=== PATIENT | male | born 2005 | race Two or more races ===

== ENCOUNTER 2024-11-19 19:02 | Observation (INO) | payer OTHER ==
[2024-11-19] MEDS ORDERED: HYDROmorphone 0.5 MG/0.5 ML SYRINGE ONE (20:27)
[2024-11-19] MEDS ORDERED: Ondansetron PF 4 MG/2 ML Vial ONE (20:27)
[2024-11-19] MEDS ORDERED: Ketorolac Tromethamine 30 MG (1 mL) VIAL ONE (20:38)
[2024-11-19] MEDS ORDERED: Lidocaine 1% PF 5 ML VIAL ONE (20:39)
[2024-11-19] MEDS ORDERED: Lidocaine 1% (PF) 30 ML VIAL ONE (20:57)
[2024-11-19] MEDS ORDERED: CEFAZOLIN 2 GM VIAL ONE (21:49)
[2024-11-19] MEDS ORDERED: Sodium Chloride 0.9% 100 ML ONE (21:50)
[2024-11-19] MEDS ORDERED: Boostrix 0.5 ML (Tdap) VIAL (>/=7 yrs of age) ONE (21:50)
[2024-11-19 22:01] LABS: #Basophils 0.05 10x3/uL (0.0-0.2); #Eosinophils Less than 0.03 10x3/uL (0.0-0.7); %Basophils 0.3 % (0.0-1.0); %Eosinophils 0.1 % (0.0-10.0); %Lymphocytes 7.9 % (28.0-48.0); %Monocytes 3.3 % (0.0-4.0); %Neutrophils 88.1 % (31.0-61.0); Hematocrit 43.9 % (42.0-52.0); Hemoglobin 15.5 g/dL (14.0-18.0); Mean Corpuscular HGB CONC 35.3 g/dL (32.0-36.0); Mean Corpuscular Hemoglobin 30.7 pg (25.0-35.0); Mean Corpuscular Volume 86.9 fL (78.0-98.0); Mean Platelet Volume 10.6 fL (7.4-10.4); Platelet Count 229 10x3/uL (130-400); RBC Distribution Width 12.5 % (11.5-14.5); Red Blood Cell (RBC) Count 5.05 mill/uL (4.00-5.20)
[2024-11-19 22:15] LABS: Anion Gap 15 mmol/L (10-20); BUN (Urea Nitrogen) 20 mg/dL (8.9-20.6); Calc. Creatinine Clearance 0 mL/min (70-130); Calcium 9.4 mg/dL (7.8-10.44); Carbon Dioxide 23 mmol/L (22-29); Chloride 106 mmol/L (98-107); Estimated GFR 132; Glucose 87 mg/dL (70-105); Potassium 3.5 mmol/L (3.5-5.1); Sodium 140 mmol/L (136-145)
[2024-11-19] MEDS ORDERED: traMADol HCl 50 MG TAB PO PRN (22:56)
[2024-11-20] MEDS: Sodium Chloride 0.9% 1,000 ML IV SCH (01:34)
[2024-11-20 01:54] VITALS: BMI 24.1
[2024-11-20 05:07] LABS: #Basophils 0.05 10x3/uL (0.0-0.2); %Basophils 0.4 % (0.0-1.0); %Lymphocytes 22.2 % (28.0-48.0); %Monocytes 9.3 % (0.0-4.0); %Neutrophils 66.8 % (31.0-61.0); Hematocrit 38.5 % (42.0-52.0); Hemoglobin 13.6 g/dL (14.0-18.0); Mean Corpuscular HGB CONC 35.3 g/dL (32.0-36.0); Mean Corpuscular Hemoglobin 30.6 pg (25.0-35.0); Mean Corpuscular Volume 86.5 fL (78.0-98.0); Mean Platelet Volume 10.8 fL (7.4-10.4); Platelet Count 193 10x3/uL (130-400); RBC Distribution Width 12.6 % (11.5-14.5); Red Blood Cell (RBC) Count 4.45 mill/uL (4.00-5.20)
[2024-11-20] MEDS: CEFAZOLIN 2 GM in Sodium Chloride 0.9% 100 ML IVPB SCH ×2 (05:10→17:36)
[2024-11-20 05:21] LABS: Anion Gap 11 mmol/L (10-20); BUN (Urea Nitrogen) 17 mg/dL (8.9-20.6); Calc. Creatinine Clearance 135 mL/min (70-130); Calcium 8.7 mg/dL (7.8-10.44); Carbon Dioxide 27 mmol/L (22-29); Chloride 107 mmol/L (98-107); Estimated GFR 126; Glucose 89 mg/dL (70-105); Potassium 3.5 mmol/L (3.5-5.1); Sodium 141 mmol/L (136-145)
[2024-11-20] MEDS ORDERED: PROPOFOL 20 ML ONE (08:35)
[2024-11-20] MEDS ORDERED: Midazolam HCl 2 mg/2 ml Vial ONE (08:35)
[2024-11-20] MEDS ORDERED: Rocuronium Bromide 10 MG/ML (10ML VIAL) ONE (08:35)
[2024-11-20] MEDS ORDERED: fentaNYL PF 100 MCG/2 ML SYRINGE ONE (08:35)
[2024-11-20] MEDS ORDERED: CEFAZOLIN 2 GM VIAL ONE (09:20)
[2024-11-20] MEDS ORDERED: Ketorolac Tromethamine 30 MG (1 mL) VIAL ONE (09:53)
[2024-11-20] MEDS ORDERED: Ondansetron PF 4 MG/2 ML Vial ONE (09:53)
[2024-11-20] MEDS ORDERED: Dexamethasone 20 MG/5 ML VIAL ONE (09:53)
[2024-11-20] MEDS ORDERED: CEFAZOLIN 1 GM VIAL ONE (10:03)
[2024-11-20] MEDS ORDERED: HYDROmorphone 2 MG/ML VIAL ONE (10:26)
[2024-11-20] MEDS ORDERED: PHENYLEPHRINE-NS 100 MCG/ML 10 ML SYRINGE ONE (10:43)
[2024-11-20] MEDS ORDERED: NEOSTIGMINE 3 MG/3 ML SYRINGE ONE (11:09)
[2024-11-20] MEDS ORDERED: Glycopyrrolate 0.2 MG/ML 5 ML SYRINGE ONE (11:09)
[2024-11-20 12:27] VITALS: TEMP 97.4
[2024-11-20 14:35] VITALS: BP 124/70
== END 2024-11-20 18:45 | disposition home or self-care (01) ==
LOC: ERS 19:02 → SURG B 22:59 → OBSVTOIN 22:59 → INTOOBSV 22:59
PROVIDERS: ADMIT Surgery; ATTEND Surgery
PROC: 0JQR0ZZ Repair Left Foot Subcutaneous Tissue and Fascia, Open Approach (ICD-10-PCS; principal; 2024-11-20)
DX: S91.312A Laceration without foreign body, left foot, initial encounter (principal); V29.99XA Rider (driver) (passenger) of other motorcycle injured in unspecified traffic accident, initial encounter
CPT/HCPCS: 12045; 36415; 80048; 85025; 90471; 90715; 96372; 96374; 96375; G0390; J0690; J1100; J1171; J1885; J2250; J2405; J2704; J7030; L1830